=== PATIENT | female | born 2000 | race Caucasian/White ===

== ENCOUNTER 2018-04-06 16:26 | Observation (INO) ==
[2018-04-06 16:55] LABS: Hematocrit 35.2 % (37.0-47.0); Hemoglobin 11.8 gm/dL (12.5-16.0); Mean Cell Volume 82.6 fl (78-100); Mean Corpuscular Hemoglobin 27.7 pg (27-31); Mean Corpuscular Hgb Conc 33.5 g/dl (32-36); Mean Platelet Volume 12.5 fl (8-12.5); Neutrophil % 80.3 % (42-75.0); Platelet Count 212 K/mm3 (150-450); Red Blood Count 4.26 M/mm3 (4.2-5.4); Red Cell Distribution Width 13.6 % (11.5-14.0); White Blood Count 11.2 K/mm3 (4.0-10.5)
[2018-04-06 17:09] LABS: Albumin * 2.4 gm/dl (3.4-5.0); Anion Gap 15.4 mmol/L (6.8-13.8); BUN/Creatinine Ratio 9.6 (9.0-21.6); Bilirubin, Total 0.4 mg/dL (0.0-1.1); Ca. Corrected For Albumin 10.9 mg/dL (8.4-10.2); Calcium * 9.9 mg/dL (7.9-10.9); Carbon Dioxide 20.7 mmol/L (24-32.6); Potassium 4.1 mmol/L (3.4-4.6); Total Protein 7.2 gm/dL (6.2-8.2)
[2018-04-06 17:12] VITALS: BP 143/98
[2018-04-06 17:18] LABS: Random Urine Total Protein 93.3 mg/dL (0-12)
[2018-04-06 17:21] LABS: Cocaine Ur Negative (NEGATIVE); Urine Barbiturate Negative (NEGATIVE); Urine Benzodiazepines Negative (NEGATIVE); Urine Opiates Negative (NEGATIVE); Urine PCP Negative (NEGATIVE); Urine THC Negative (NEGATIVE)
[2018-04-06] MEDS ORDERED: BETAMETHASONE ACETATE,SOD PHOS 6 MG/ML VIAL IM ONE (18:00)
--- NOTE | 2018-04-06 18:36 | HP ---
Chief Complaint - Chief Complaint Date of Service: 04/06/18 Chief Complaint: severe elevated blood pressure History of Present Illness: 18 yo, CF, at 33.3 weeks with EDC of 05/22/18 by a 8.2 week ultrasound. Patient presented to clinic for routine visit and found to have elevated blood pressures 173/118 and 167/126. She denies headache, blurry vision or RUQ pain. This is complicated by morbid obesity and GDM. She is on metformin 500 mg bid started around 28 weeks and her blood glucose is over all in good control with fasting < 90 and 1 h PP < 140. Her blood pressure was elevated at her last visit 3 weeks ago. Her random protein/creatinine ratio was elevated to 371 on 03/16/18 at the time. We were unable to get in touch with the patient because her phones were not working. She no showed her last appointment. Today her random protein/creatinine ratio was elevated further to 695. The rest of her PIH labs were unremarkable. PObGyn history: SAB x 1 Medical History (Last Updated 01/11/18 @ 10:34 by Mindy Murphy RN) ADHD (attention deficit hyperactivity disorder) Onset Date: ~2009 Vrcw-Qlupo-Fpbwdlw disease Onset Date: ~2007 Surgical History: Surgical History (Last Updated 01/14/18 @ 11:22 by Mindy Murphy RN) History of hip surgery Onset Date: ~2007 Family History: Family History (Last Updated 01/11/18 @ 10:38 by Mindy Murphy RN) Mother Poor health Father Alive and well Grandfather COPD (chronic obstructive pulmonary disease) Schizophrenia Grandfather Myocardial infarction Grandmother Alive and well Grandmother Diabetes CVA (cerebral vascular accident) Social History: Preferred Language Estonian smoker: 2-4 cigarettes a day. denies alcohol or drug use. Review Of Systems (GEN) - Review of Systems Misc: All systems neg except as marked Allergies/Adverse Reactions: Allergies Allergy/AdvReac Type Severity Reaction Status Date / Time codeine AdvReac Intermediate vomiting Verified 01/14/18 11:21 up blood morphine AdvReac Intermediate vomiting Verified 01/14/18 11:21 up blood Home Medications: HOME MEDICATIONS blood sugar diagnostic strips See Dose Instructions .ROUTE .MEDSUPPLY #100 ea 03/10/18 [Last Taken Unknown] blood-glucose meter kit See Dose Instructions .ROUTE .MEDSUPPLY #1 ea 03/10/18 [Last Taken Unknown] lancets 28 gauge See Dose Instructions .ROUTE .MEDSUPPLY #100 ea 03/10/18 [Last Taken Unknown] metformin 500 mg tablet 500 mg PO BID #60 tab 03/10/18 [Last Taken 04/06/18 12:00] Vits96/Iron Fum/Folic [ S] 1 tab PO DAILY 04/06/18 [Last Taken Unknown] Exam - Exam Vital Signs: Vital Signs - Last Taken Temp 37.2 C 04/06/18 17:00 Pulse 99 04/06/18 17:00 Resp 20 04/06/18 17:00 BP 143/98 H 04/06/18 17:00 Pulse Ox 98 04/06/18 17:00 BP 173/118, 167/126 Constitutional: Present: Alert, Oriented x3, Cooperative ENT Exam: Present: hearing grossly normal Neck: Present: supple Back Exam: Present: no CVA tenderness Respiratory: Present: normal breath sounds, no respiratory distress, No rales, No wheezing Cardiovascular/Chest: Present: regular rate, rhythm, no murmur Abdomen: Present: soft, nontender, other - gravid, fundal height 42 /Rectal: Present: Other - cervix: closed, thick and -3 Extremity: Present: no calf tenderness, lower extremity edema - 1+ bilaterally Skin Exam: Present: normal color, warm/dry, no cyanosis 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, other - DTR 2+ bilateral knees Appearance: Present: appropriate appearance Eye contact: Present: cooperative, good eye contact, normal speech Diagnostic Studies: Abnormal Lab Results 04/06/18 04/06/18 04/06/18 Range/Units 16:54 16:54 16:55 WBC 11.2 H (4.0-10.5) K/mm3 Hgb 11.8 L (12.5-16.0) gm/dL Hct 35.2 L (37.0-47.0) % Neutrophils % 80.3 H (42-75.0) % Lymphocytes % 14.3 L (20-51) % Neutrophils # 9.0 H (1.3-6.0) K/mm3 Carbon Dioxide 20.7 L (24-32.6) mmol/L Anion Gap 15.4 H (6.8-13.8) mmol/L Calcium Adj for Albumin 10.9 H (8.4-10.2) mg/dL Albumin 2.4 L (3.4-5.0) gm/dl U Random Total Protein 93.3 H (0-12) mg/dL U [place] Prot/Creat Ratio 695 H (0-199) mg/gm Laboratory Results WBC 11.2 K/mm3 (4.0-10.5) H 04/06/18 16:54 RBC 4.26 M/mm3 (4.2-5.4) 04/06/18 16:54 Hgb 11.8 gm/dL (12.5-16.0) L 04/06/18 16:54 Hct 35.2 % (37.0-47.0) L 04/06/18 16:54 MCV 82.6 fl (78-100) 04/06/18 16:54 MCH 27.7 pg (27-31) 04/06/18 16:54 MCHC 33.5 g/dl (32-36) 04/06/18 16:54 RDW 13.6 % (11.5-14.0) 04/06/18 16:54 Plt Count 212 K/mm3 (150-450) 04/06/18 16:54 MPV 12.5 fl (8-12.5) 04/06/18 16:54 Immature Gran % (Auto) 0.30 % (0.001-0.429) 04/06/18 16:54 Immature Gran # (Auto) 0.03 K/mm3 (0.000-0.0310) 04/06/18 16:54 Neutrophils % 80.3 % (42-75.0) H 04/06/18 16:54 Lymphocytes % 14.3 % (20-51) L 04/06/18 16:54 Monocytes % 4.4 % (0.0-9) 04/06/18 16:54 Eosinophils % 0.3 % (0.0-3.0) 04/06/18 16:54 Basophils % 0.4 % (0.0-1.0) 04/06/18 16:54 Nucleated RBC % 0.0 k/mm3 (0-1) 04/06/18 16:54 Neutrophils # 9.0 K/mm3 (1.3-6.0) H 04/06/18 16:54 Lymphocytes # 1.60 k/mm3 (1.5-3.5) 04/06/18 16:54 Monocytes # 0.5 k/mm3 (0.0-1.0) 04/06/18 16:54 Eosinophils # 0.0 k/mm3 (0.0-0.7) 04/06/18 16:54 Absolute Basophils 0.0 k/mm3 (0.0-0.1) 04/06/18 16:54 Sodium 134 mmol/L (132-142) 04/06/18 16:54 Plasma Sodium 134 mmol/L (130-142) 04/06/18 16:54 Potassium 4.1 mmol/L (3.4-4.6) 04/06/18 16:54 Chloride 102 mmol/L (97-106) 04/06/18 16:54 Carbon Dioxide 20.7 mmol/L (24-32.6) L 04/06/18 16:54 Anion Gap 15.4 mmol/L (6.8-13.8) H 04/06/18 16:54 BUN 8 mg/dL (3-23) 04/06/18 16:54 Creatinine 0.83 mg/dL (0.4-1.4) 04/06/18 16:54 Est GFR (Non-Af Amer) 93 mL/min (60-130) 04/06/18 16:54 BUN/Creatinine Ratio 9.6 (9.0-21.6) 04/06/18 16:54 Random Glucose 78 mg/dL (70-110) 04/06/18 16:54 Calcium 9.9 mg/dL (7.9-10.9) 04/06/18 16:54 Calcium Adj for Albumin 10.9 mg/dL (8.4-10.2) H 04/06/18 16:54 Total Bilirubin 0.4 mg/dL (0.0-1.1) 04/06/18 16:54 AST 26 U/L (0-48) 04/06/18 16:54 ALT 21 U/L (19-67) 04/06/18 16:54 Alkaline Phosphatase 148 U/L (50-170) 04/06/18 16:54 Total Protein 7.2 gm/dL (6.2-8.2) 04/06/18 16:54 Albumin 2.4 gm/dl (3.4-5.0) L 04/06/18 16:54 Ur Random Creatinine 134.3 mg/dL (60-200) 04/06/18 16:55 U Random Total Protein 93.3 mg/dL (0-12) H 04/06/18 16:55 U [place] Prot/Creat Ratio 695 mg/gm (0-199) H 04/06/18 16:55 Urine Opiates Screen Negative (NEGATIVE) 04/06/18 16:55 Barbiturate Screen Negative (NEGATIVE) 04/06/18 16:55 Ur Phencyclidine Scrn Negative (NEGATIVE) 04/06/18 16:55 Urine Amphetamine Negative (NEGATIVE) 04/06/18 16:55 U Benzodiazepines Scrn Negative (NEGATIVE) 04/06/18 16:55 Urine Cocaine Screen Negative (NEGATIVE) 04/06/18 16:55 Urine Marijuana (THC) Negative (NEGATIVE) 04/06/18 16:55 FHR: reassuring 140s with accels. [place]: irregular contractions. Assessment/Plan - Narrative Narrative: A: 18 yo, CF, at 33.3 weeks with 1) GDM on metformin and 2) preeclampsia with severe features, currently stable with BP in the mild range and reassuring status. Patient currently has no working phones for communication with us. Plan: Monitoring. Betamethasone first dose at 17:51. Dr. Mccord from [facility] accepted the transfer. Ayala Jaimes MD
== END 2018-04-06 19:00 | disposition short-term general hospital (02) ==
LOC: OB 16:26 → OBCLINIC 16:26
PROVIDERS: ADMIT Obstetrics & Gynecology; ATTEND Obstetrics & Gynecology
CPT/HCPCS: 36415; 59025; 80053; 80307; 82570; 84155; 84156; 85025; 87081; 96372; G0378; G0479